=== PATIENT | male | born 1965 | race Caucasian/White ===

== ENCOUNTER → 2018-11-03 | Emergency (ER) | payer SELFPAY ==
[~2018-11-03] MED LIST: Lisinopril 10 MG TAB ONE; Lisinopril 20 MG TAB PO SCH; Lorazepam 1 MG TAB ONE; Nicotine 14 MG PATCH TOP SCH; chlordiazePOXIDE HCl 25 MG CAP ONE; chlordiazePOXIDE HCl 25 MG CAP PO SCH; hydrOXYzine 25 MG TAB ONE
[2018-11-03 19:41] LABS: Bilirubin Negative (Negative); Blood, Urine Negative (Negative); Clarity CLEAR (Clear); Glucose, Urine (Dipstick) Negative (Negative); Leukocyte Negative (Negative); Nitrite Negative (Negative); Protein, Urine (Dipstick) Negative (Neg-Trace); Specific Gravity, Urine 1.005 (1.002-1.036)
[2018-11-03 19:42] LABS: #Basophils 0.1 thou/uL (0.0-0.2); #Eosinphils 0.2 thou/uL (0.0-0.7); #Lymphocytes 1.5 thou/uL (1.20-3.40); #Monocytes 0.3 thou/uL (0.11-0.59); #Neutrophils 1.7 thou/uL (1.40-6.50); %Eosinophils 5.1 % (0.0-10.0); %Lymphocytes 40.2 % (21.0-51.0); %Monocytes 7.5 % (0.0-10.0); %Neutrophils 45.1 % (42.0-75.0); Hemoglobin 16.1 g/dL (14.0-18.0); Mean Corpuscular Hemoglobin 33.6 pg (27.0-31.0); Mean Platelet Volume 7.9 fL (7.4-10.4); Platelet Count 120 thou/uL (130-400); RBC Distribution Width 13.6 % (11.5-14.5); Red Blood Cell (RBC) Count 4.78 mill/uL (4.70-6.10); White Blood Cell (WBC) Count 3.7 thou/uL (4.8-10.8)
[2018-11-03 20:02] LABS: ALT (SGPT) 102 U/L (8-55); AST (SGOT) 201 U/L (5-34); Acetaminophen Less than 6.0 mcg/mL (10.0-30.0); Albumin 4.1 g/dL (3.5-5.0); Alcohol 311 mg/dL (Less than 10); Alkaline Phosphatase 143 U/L (40-150); Anion Gap 17 mmol/L (10-20); BUN (Urea Nitrogen) 4 mg/dL (8.4-25.7); Bilirubin, Total 1.1 mg/dL (0.2-1.2); CK (CPK) 164 U/L (30-200); Calc. Creatinine Clearance 0 mL/min (70-130); Calcium 9.1 mg/dL (7.8-10.44); Carbon Dioxide 26 mmol/L (22-29); Chloride 99 mmol/L (98-107); Estimated GFR-MDRD 84; Globulin 2.9 g/dL (2.4-3.5); Glucose 108 mg/dL (70-105); Salicylate Less than 8.0 mg/dL (15.0-30.0); Sodium 139 mmol/L (136-145)
[2018-11-03 20:06] LABS: Potassium 2.9 mmol/L (3.5-5.1)
[2018-11-03 20:07] LABS: Amphetamine Detected (NotDetected); Barbiturates Screen Not Detected (NotDetected); Benzodiazepine Screen Detected (NotDetected); Cocaine Metabolite Screen Not Detected (NotDetected); Medtox Reader # READER 4; Methadone Not Detected (NotDetected); Methamphetamine Not Detected (NotDetected); Opiate Screen Not Detected (NotDetected); Oxycodone Screen Not Detected (NotDetected); Phencyclidine (PCP) Not Detected (NotDetected); THC/Cannabinoid Screen Not Detected (NotDetected); Tricyclic Screen Not Detected (NotDetected)
[2018-11-03 20:08] LABS: Medtox Control Line Valid? VALID (VALID)
[2018-11-04 20:09] LABS: ALT (SGPT) 90 U/L (8-55); AST (SGOT) 139 U/L (5-34); Alkaline Phosphatase 152 U/L (40-150); Anion Gap 16 mmol/L (10-20); BUN (Urea Nitrogen) 4 mg/dL (8.4-25.7); Bilirubin, Total 1.8 mg/dL (0.2-1.2); Calc. Creatinine Clearance 0 mL/min (70-130); Calcium 9.5 mg/dL (7.8-10.44); Carbon Dioxide 26 mmol/L (22-29); Chloride 99 mmol/L (98-107); Estimated GFR-MDRD Greater than 90; Globulin 2.9 g/dL (2.4-3.5); Glucose 136 mg/dL (70-105); Potassium 3.2 mmol/L (3.5-5.1); Protein, Total 6.9 g/dL (6.0-8.3); Sodium 138 mmol/L (136-145)
--- NOTE | 2018-11-08 17:00 | EKG ---
Test Reason : Blood Pressure : / mmHG Vent. Rate : 095 BPM Atrial Rate : 095 BPM P-R Int : 146 ms QRS Dur : 096 ms QT Int : 372 ms P-R-T Axes : 073 074 037 degrees QTc Int : 467 ms Normal sinus rhythm Possible Left atrial enlargement Borderline ECG Confirmed by TOMMIE MEDINA DO ([id number]), communications editor DANIEL HAINES ([id number]) on 11/08/2018 4:59:52 PM Referred By: Confirmed By:TOMMIE MEDINA DO
== END ==
LOC: ERS 18:44
DX: T42.4X2A Poisoning by benzodiazepines, intentional self-harm, initial encounter (principal); F10.10 Alcohol abuse, uncomplicated; I10 Essential (primary) hypertension; K21.9 Gastro-esophageal reflux disease without esophagitis; F41.0 Panic disorder [episodic paroxysmal anxiety]; F17.210 Nicotine dependence, cigarettes, uncomplicated; Z79.899 Other long term (current) drug therapy
CPT/HCPCS: 36415; 80053; 80306; 80307; 81003; 82550; 84443; 85025; 93005

== ENCOUNTER 2022-10-11 22:31 | Inpatient (IN) | payer SELFPAY ==
[2022-10-11] MEDS ORDERED: Ibuprofen 200 MG TAB ONE (23:14)
[2022-10-11 23:42] LABS: #Monocytes 1.1 thou/uL (0.11-0.59); %Basophils 0.1 % (0.0-1.0); %Lymphocytes 3.5 % (21.0-51.0); %Monocytes 6.7 % (0.0-10.0); %Neutrophils 89.2 % (42.0-75.0); Hemoglobin 11.1 g/dL (14.0-18.0); Mean Corpuscular HGB CONC 31.8 g/dL (32.0-36.0); Mean Corpuscular Hemoglobin 23.9 pg (27.0-31.0); Mean Corpuscular Volume 75.2 fl (78.0-98.0); Mean Platelet Volume 9.8 fL (7.4-10.4); Platelet Count 363 10x3/uL (130-400); RBC Distribution Width 17.9 % (11.5-14.5); Red Blood Cell (RBC) Count 4.64 mill/uL (4.70-6.10); White Blood Cell (WBC) Count 16.8 10x3/uL (4.8-10.8)
[2022-10-12 00:06] LABS: Acetaminophen Less than 10.0 mcg/mL (10.0-30.0); Alcohol Less than 10 mg/dL (Less than 10); Salicylate Less than 8.0 mg/dL (15.0-30.0)
[2022-10-12 00:09] LABS: ALT (SGPT) 26 U/L (8-55); AST (SGOT) 36 U/L (5-34); Albumin 4.2 g/dL (3.5-5.0); Alkaline Phosphatase 78 U/L (40-110); Anion Gap 17 mmol/L (10-20); BUN (Urea Nitrogen) 21 mg/dL (8.4-25.7); Bilirubin, Total 1.6 mg/dL (0.2-1.2); Calc. Creatinine Clearance 0 mL/min (70-130); Calcium 9.1 mg/dL (7.8-10.44); Carbon Dioxide 23 mmol/L (22-29); Chloride 88 mmol/L (98-107); Estimated GFR 68; Globulin 3.1 g/dL (2.4-3.5); Glucose 174 mg/dL (70-105); Lipase 9 U/L (8-78); Potassium 3.3 mmol/L (3.5-5.1); Protein, Total 7.3 g/dL (6.0-8.3); Sodium 125 mmol/L (136-145)
[2022-10-12 00:29] LABS: Bacteria/HPF None Seen HPF (None Seen); Bilirubin Negative (Negative); Blood, Urine 3+ (Negative); Clarity Clear (Clear); Glucose, Urine (Dipstick) 30 mg/dL (Negative); Ketone, Urine Trace mg/dL (Negative); Leukocyte Negative Leu/uL (Negative); Nitrite Negative (Negative); Protein, Urine (Dipstick) 200 mg/dL (Neg-Trace); RBC/HPF 0-3 HPF (0-3); Specific Gravity, Urine 1.025 (1.002-1.036); Squamous Epithelial 0-3 HPF (0-3); Urobilinogen 3 mg/dL (Less than 2); WBC/HPF 0-3 HPF (0-3)
[2022-10-12 00:31] LABS: Amphetamine Not Detected (NotDetected); Barbiturates Screen Not Detected (NotDetected); Benzodiazepine Screen Not Detected (NotDetected); Cocaine Metabolite Screen Not Detected (NotDetected); Methadone Not Detected (NotDetected); Methamphetamine Not Detected (NotDetected); Opiate Screen Not Detected (NotDetected); Oxycodone Screen Not Detected (NotDetected); Phencyclidine (PCP) Not Detected (NotDetected); THC/Cannabinoid Screen Not Detected (NotDetected); Tricyclic Screen Not Detected (NotDetected)
[2022-10-12 00:47] LABS: CKMB 4.5 ng/mL (0-6.6)
[2022-10-12] MEDS ORDERED: Ondansetron ODT 4 MG TAB PO PRN (03:44)
[2022-10-12] MEDS ORDERED: Ondansetron PF 4 MG/2 ML Vial IVP PRN (03:44)
[2022-10-12] MEDS ORDERED: Acetaminophen 650 MG Suppository PR PRN (03:44)
[2022-10-12] MEDS ORDERED: Acetaminophen 325 MG TAB PO PRN (03:44)
[2022-10-12] MEDS ORDERED: Sodium Chloride 0.9% 1,000 ML IV SCH (03:45)
[2022-10-12] MEDS ORDERED: Cefepime 2 GM in Sodium Chloride 0.9% 100 ML IVPB SCH (04:15)
[2022-10-12] MEDS ORDERED: Vancomycin 1.5 GRAM/300 ML BAG 1.5 GM in Premix Bag 1 BAG IVPB SCH (04:15)
[2022-10-12 04:22] LABS: #Neutrophils 12.5 thou/uL (1.40-6.50); %Lymphocytes 6.6 % (21.0-51.0); %Monocytes 7.1 % (0.0-10.0); %Neutrophils 85.8 % (42.0-75.0); Hemoglobin 10.3 g/dL (14.0-18.0); Mean Corpuscular HGB CONC 31.5 g/dL (32.0-36.0); Mean Corpuscular Hemoglobin 24.1 pg (27.0-31.0); Mean Corpuscular Volume 76.6 fl (78.0-98.0); Platelet Count 339 10x3/uL (130-400); RBC Distribution Width 18.1 % (11.5-14.5); Red Blood Cell (RBC) Count 4.27 mill/uL (4.70-6.10); White Blood Cell (WBC) Count 14.6 10x3/uL (4.8-10.8)
[2022-10-12 04:44] LABS: Anion Gap 11 mmol/L (10-20); BUN (Urea Nitrogen) 22 mg/dL (8.4-25.7); Calc. Creatinine Clearance 0 mL/min (70-130); Carbon Dioxide 28 mmol/L (22-29); Chloride 90 mmol/L (98-107); Potassium 2.8 mmol/L (3.5-5.1); Sodium 126 mmol/L (136-145)
[2022-10-12 04:45] LABS: Calcium 8.7 mg/dL (7.8-10.44); Estimated GFR 87; Glucose 131 mg/dL (70-105)
[2022-10-12] MEDS ORDERED: Piperacillin/Tazobactam 3.375 GM VIAL ONE ×2 (04:56→10:33)
[2022-10-12] MEDS ORDERED: VANCOMYCIN 2 GRAM/500 ML BAG 2 GM in Premix Bag 1 BAG IVPB SCH (05:00)
[2022-10-12 05:16] VITALS: BMI 32.1
[2022-10-12 05:45] LABS: Iron 50 ug/dL (65-175); Iron Binding Capacity, Total 360 mcg/dL (261-462); Magnesium 2.1 mg/dL (1.6-2.6)
[2022-10-12 05:55] LABS: Troponin I 0.015 ng/mL (< 0.028)
[2022-10-12] MEDS ORDERED: Potassium Chloride 20 MEQ TAB ONE ×2 (05:59→08:14)
[2022-10-12] MEDS ORDERED: Piperacillin/Tazobactam 3.375 GM in Sodium Chloride 0.9% 100 ML IVPB SCH (06:00)
[2022-10-12] MEDS: Potassium Chloride 20 MEQ TAB PO SCH ×2 (06:08→08:18)
[2022-10-12] MEDS ORDERED: Lorazepam 1 MG TAB PO PRN (07:58)
[2022-10-12] MEDS ORDERED: Lorazepam 2 MG/ML VIAL IM PRN (07:58)
[2022-10-12] MEDS ORDERED: Electrolyte Replacement Protocol 1 EACH FS SCH (08:00)
[2022-10-12] MEDS ORDERED: Lorazepam 1 MG TAB ONE ×2 (08:13→11:30)
[2022-10-12] MEDS ORDERED: LORazepam 2 MG/ML SYR.(CARPUJECT) ONE (08:13)
[2022-10-12] MEDS ORDERED: Folic Acid 1 MG TAB ONE (08:14)
[2022-10-12] MEDS: Folic Acid 1 MG TAB PO SCH (08:23)
[2022-10-12] MEDS: Lorazepam 1 MG TAB PO SCH ×3 (08:23→22:11)
[2022-10-12 08:37] LABS: Magnesium 1.9 mg/dL (1.6-2.6); Phosphorus 2.9 mg/dL (2.3-4.7)
[2022-10-12] MEDS ORDERED: Magnesium 2 GM/50 ML BAG (IN WATER) ONE (09:28)
[2022-10-12] MEDS: Multivit, Therapeutic 1 TAB PO SCH (09:38)
[2022-10-12] MEDS: Thiamine HCl 200 MG/2 ML VIAL SLOW IVP SCH (09:38)
[2022-10-12] MEDS ORDERED: Magnesium 2 GM/50 ML(in water) 2 GM in Premix Bag 1 BAG IVPB SCH (10:00)
[2022-10-12] MEDS: Piperacillin/Tazobactam 3.375 GM in Sodium Chloride 0.9% 100 ML IVPB SCH ×2 (10:40→17:56)
[2022-10-12 11:08] LABS: Sodium, Urine Less than 20 mmol/L (Not Available)
[2022-10-12] MEDS: Sodium Chloride 1 GM TAB PO SCH ×2 (16:10→22:11)
[2022-10-12] MEDS ORDERED: hydrALAZINE 20 MG/ML VIAL SLOW IVP PRN (17:25)
[2022-10-12 17:42] LABS: Anion Gap 14 mmol/L (10-20); BUN (Urea Nitrogen) 16 mg/dL (8.4-25.7); Calc. Creatinine Clearance 135 mL/min (70-130); Calcium 8.8 mg/dL (7.8-10.44); Carbon Dioxide 25 mmol/L (22-29); Chloride 92 mmol/L (98-107); Estimated GFR 99; Glucose 113 mg/dL (70-105); Potassium 3.6 mmol/L (3.5-5.1); Sodium 127 mmol/L (136-145)
[2022-10-12] MEDS ORDERED: PARoxetine 20 MG TAB PO SCH (17:45)
[2022-10-12] MEDS ORDERED: Lisinopril 20 MG TAB PO SCH (17:45)
[2022-10-12] MEDS ORDERED: Amlodipine 10 MG TAB PO SCH (17:45)
[2022-10-12] MEDS: VANCOMYCIN 1.75 GM/500 ML BAG 1.75 GM in Premix Bag 1 BAG IVPB SCH (18:37)
[2022-10-12] MEDS: busPIRone HCl 10 MG TAB PO SCH (22:11)
[2022-10-13] MEDS: Lorazepam 1 MG TAB PO SCH ×5 (01:53→19:58)
[2022-10-13] MEDS: Piperacillin/Tazobactam 3.375 GM in Sodium Chloride 0.9% 100 ML IVPB SCH ×4 (01:54→18:16)
[2022-10-13] MEDS: VANCOMYCIN 1.75 GM/500 ML BAG 1.75 GM in Premix Bag 1 BAG IVPB SCH (05:23)
[2022-10-13 07:24] LABS: Anion Gap 13 mmol/L (10-20); BUN (Urea Nitrogen) 13 mg/dL (8.4-25.7); Calc. Creatinine Clearance 152 mL/min (70-130); Calcium 8.6 mg/dL (7.8-10.44); Carbon Dioxide 25 mmol/L (22-29); Chloride 91 mmol/L (98-107); Estimated GFR 103; Glucose 102 mg/dL (70-105); Potassium 3.2 mmol/L (3.5-5.1); Sodium 126 mmol/L (136-145)
[2022-10-13] MEDS ORDERED: Lorazepam 1 MG TAB PO PRN (07:58)
[2022-10-13] MEDS ORDERED: Potassium Chloride 20 MEQ TAB PO SCH ×2 (08:00→21:15)
[2022-10-13] MEDS: busPIRone HCl 10 MG TAB PO SCH ×2 (08:53→19:47)
[2022-10-13] MEDS: Folic Acid 1 MG TAB PO SCH (08:53)
[2022-10-13] MEDS: PARoxetine 20 MG TAB PO SCH (08:53)
[2022-10-13] MEDS: Lisinopril 20 MG TAB PO SCH (08:54)
[2022-10-13] MEDS: Multivit, Therapeutic 1 TAB PO SCH (08:54)
[2022-10-13] MEDS: Amlodipine 10 MG TAB PO SCH (08:54)
[2022-10-13] MEDS: Thiamine HCl 200 MG/2 ML VIAL SLOW IVP SCH (08:59)
[2022-10-13] MEDS: Sodium Chloride 1 GM TAB PO SCH ×3 (08:59→19:47)
[2022-10-13] MEDS ORDERED: Dextrose 5% in Water 1,000 ML IV SCH (12:00)
[2022-10-13] MEDS ORDERED: Sodium Chloride 256 MEQ in Dextrose 5% in Water 936 ML IV SCH (14:30)
[2022-10-13 17:41] LABS: Anion Gap 13 mmol/L (10-20); BUN (Urea Nitrogen) 14 mg/dL (8.4-25.7); Calc. Creatinine Clearance 161 mL/min (70-130); Calcium 8.5 mg/dL (7.8-10.44); Carbon Dioxide 25 mmol/L (22-29); Chloride 93 mmol/L (98-107); Estimated GFR 105; Glucose 112 mg/dL (70-105); Potassium 3.3 mmol/L (3.5-5.1); Sodium 128 mmol/L (136-145)
[2022-10-13 17:41] LABS: Vancomycin, Trough 11.1 ug/mL
[2022-10-13] MEDS: VANCOMYCIN 1.25 GM/250 ML BAG 1.25 GM in Premix Bag 1 BAG IVPB SCH (19:47)
[2022-10-13 22:20] LABS: Anion Gap 12 mmol/L (10-20); BUN (Urea Nitrogen) 14 mg/dL (8.4-25.7); Calc. Creatinine Clearance 147 mL/min (70-130); Calcium 8.4 mg/dL (7.8-10.44); Carbon Dioxide 25 mmol/L (22-29); Chloride 95 mmol/L (98-107); Estimated GFR 102; Glucose 105 mg/dL (70-105); Potassium 3.5 mmol/L (3.5-5.1); Sodium 128 mmol/L (136-145)
[2022-10-14] MEDS: Piperacillin/Tazobactam 3.375 GM in Sodium Chloride 0.9% 100 ML IVPB SCH ×3 (01:25→17:29)
[2022-10-14] MEDS: VANCOMYCIN 1.25 GM/250 ML BAG 1.25 GM in Premix Bag 1 BAG IVPB SCH ×2 (01:25→11:14)
[2022-10-14] MEDS: Lorazepam 1 MG TAB PO SCH (01:33)
[2022-10-14 06:56] LABS: Anion Gap 10 mmol/L (10-20); BUN (Urea Nitrogen) 12 mg/dL (8.4-25.7); Calc. Creatinine Clearance 115 mL/min (70-130); Calcium 8.5 mg/dL (7.8-10.44); Carbon Dioxide 26 mmol/L (22-29); Chloride 95 mmol/L (98-107); Estimated GFR 102; Glucose 103 mg/dL (70-105); Potassium 3.6 mmol/L (3.5-5.1); Sodium 127 mmol/L (136-145)
[2022-10-14] MEDS ORDERED: Lorazepam 1 MG TAB PO PRN (07:58)
[2022-10-14] MEDS ORDERED: Sodium Chloride 256 MEQ in Dextrose 5% in Water 936 ML IV SCH ×2 (08:15→22:55)
[2022-10-14] MEDS: Sodium Chloride 1 GM TAB PO SCH ×3 (08:28→19:52)
[2022-10-14] MEDS: Folic Acid 1 MG TAB PO SCH (08:29)
[2022-10-14] MEDS: Amlodipine 10 MG TAB PO SCH (08:29)
[2022-10-14] MEDS: busPIRone HCl 10 MG TAB PO SCH ×2 (08:29→19:52)
[2022-10-14] MEDS: Lisinopril 20 MG TAB PO SCH (08:29)
[2022-10-14] MEDS: Multivit, Therapeutic 1 TAB PO SCH (08:29)
[2022-10-14] MEDS: PARoxetine 20 MG TAB PO SCH (08:29)
[2022-10-14] MEDS: Thiamine HCl 200 MG/2 ML VIAL SLOW IVP SCH (08:30)
[2022-10-14] MEDS: Lorazepam 0.5 MG TAB PO SCH ×3 (08:41→19:52)
[2022-10-14 11:11] LABS: HBSAg Index 0.22 S/CO (0-0.99); Hep B Surf Ag Non-Reactive S/CO (NonReactive)
[2022-10-14 11:12] LABS: Hep A IgM AB Non-Reactive S/CO (NonReactive); Hep A IgM S/CO 0.17 S/CO (0-0.79)
[2022-10-14 11:13] LABS: HBCM Index 0.09 S/CO (0-0.79); Hepatitis B Core IgM Abs Non-Reactive S/CO (NonReactive)
[2022-10-14 11:35] LABS: Hep C IgG Ab Reflex HepC Qnt S/CO (NonReactive); Hep C Index 2.02 S/CO (0-0.79)
[2022-10-14 13:59] LABS: Anion Gap 13 mmol/L (10-20); BUN (Urea Nitrogen) 12 mg/dL (8.4-25.7); Calc. Creatinine Clearance 116 mL/min (70-130); Calcium 8.7 mg/dL (7.8-10.44); Carbon Dioxide 26 mmol/L (22-29); Chloride 94 mmol/L (98-107); Estimated GFR 102; Glucose 155 mg/dL (70-105); Potassium 3.6 mmol/L (3.5-5.1); Sodium 129 mmol/L (136-145)
[2022-10-14 18:57] LABS: Anion Gap 11 mmol/L (10-20); BUN (Urea Nitrogen) 16 mg/dL (8.4-25.7); Calc. Creatinine Clearance 108 mL/min (70-130); Calcium 8.2 mg/dL (7.8-10.44); Carbon Dioxide 24 mmol/L (22-29); Chloride 97 mmol/L (98-107); Estimated GFR 100; Glucose 134 mg/dL (70-105); Potassium 3.7 mmol/L (3.5-5.1); Sodium 128 mmol/L (136-145)
[2022-10-15] MEDS: Piperacillin/Tazobactam 3.375 GM in Sodium Chloride 0.9% 100 ML IVPB SCH ×2 (01:25→09:00)
[2022-10-15] MEDS: Lorazepam 0.5 MG TAB PO SCH (01:33)
[2022-10-15 06:58] LABS: #Eosinphils 0.3 thou/uL (0.0-0.7); #Monocytes 0.5 thou/uL (0.11-0.59); #Neutrophils 6.8 thou/uL (1.40-6.50); %Basophils 0.1 % (0.0-1.0); %Eosinophils 2.8 % (0.0-10.0); %Lymphocytes 14.4 % (21.0-51.0); %Monocytes 5.5 % (0.0-10.0); %Neutrophils 76.9 % (42.0-75.0); Hemoglobin 8.5 g/dL (14.0-18.0); Mean Corpuscular HGB CONC 30.6 g/dL (32.0-36.0); Mean Corpuscular Hemoglobin 24.5 pg (27.0-31.0); Mean Corpuscular Volume 80.1 fl (78.0-98.0); Mean Platelet Volume 10.5 fL (7.4-10.4); Platelet Count 469 10x3/uL (130-400); RBC Distribution Width 18.4 % (11.5-14.5); Red Blood Cell (RBC) Count 3.47 mill/uL (4.70-6.10); White Blood Cell (WBC) Count 8.8 10x3/uL (4.8-10.8)
[2022-10-15 07:24] LABS: Anion Gap 10 mmol/L (10-20); BUN (Urea Nitrogen) 43 mg/dL (8.4-25.7); Calc. Creatinine Clearance 105 mL/min (70-130); Calcium 8.2 mg/dL (7.8-10.44); Carbon Dioxide 26 mmol/L (22-29); Chloride 101 mmol/L (98-107); Estimated GFR 99; Glucose 139 mg/dL (70-105); Potassium 4.2 mmol/L (3.5-5.1); Sodium 133 mmol/L (136-145)
[2022-10-15] MEDS ORDERED: Lorazepam 0.5 MG TAB PO PRN (07:58)
[2022-10-15] MEDS: busPIRone HCl 10 MG TAB PO SCH ×2 (08:58→20:19)
[2022-10-15] MEDS: PARoxetine 20 MG TAB PO SCH (08:59)
[2022-10-15] MEDS: Folic Acid 1 MG TAB PO SCH (08:59)
[2022-10-15] MEDS: Thiamine 100 MG TAB PO SCH (08:59)
[2022-10-15] MEDS: Amlodipine 10 MG TAB PO SCH (08:59)
[2022-10-15] MEDS: Multivit, Therapeutic 1 TAB PO SCH (08:59)
[2022-10-15] MEDS: Lisinopril 20 MG TAB PO SCH (09:00)
[2022-10-15] MEDS: Sodium Chloride 1 GM TAB PO SCH ×3 (09:02→20:19)
[2022-10-15] MEDS: Sodium Chloride 256 MEQ in Dextrose 5% in Water 936 ML IV SCH (10:19)
[2022-10-15 14:56] LABS: Anion Gap 10 mmol/L (10-20); BUN (Urea Nitrogen) 50 mg/dL (8.4-25.7); Calc. Creatinine Clearance 109 mL/min (70-130); Calcium 8.1 mg/dL (7.8-10.44); Carbon Dioxide 23 mmol/L (22-29); Chloride 105 mmol/L (98-107); Estimated GFR 100; Glucose 145 mg/dL (70-105); Potassium 4.2 mmol/L (3.5-5.1); Sodium 134 mmol/L (136-145)
[2022-10-15 17:06] LABS: Hemoglobin 7.1 g/dL (14.0-18.0)
[2022-10-15] MEDS ORDERED: Pantoprazole 40 MG VIAL IVP SCH ×2 (19:00→21:00)
[2022-10-15 20:35] LABS: Anion Gap 11 mmol/L (10-20); BUN (Urea Nitrogen) 46 mg/dL (8.4-25.7); Calc. Creatinine Clearance 100 mL/min (70-130); Calcium 8.2 mg/dL (7.8-10.44); Carbon Dioxide 21 mmol/L (22-29); Chloride 105 mmol/L (98-107); Estimated GFR 95; Glucose 168 mg/dL (70-105); Potassium 3.9 mmol/L (3.5-5.1); Sodium 133 mmol/L (136-145)
[2022-10-15] MEDS: Nicotine 14 MG PATCH TD SCH (22:48)
[2022-10-15 23:46] LABS: Hemoglobin 6.5 g/dL (14.0-18.0)
[2022-10-16] MEDS: Sodium Chloride 256 MEQ in Dextrose 5% in Water 936 ML IV SCH ×3 (04:29→23:36)
[2022-10-16 06:54] LABS: #Eosinphils 0.5 thou/uL (0.0-0.7); #Monocytes 0.4 thou/uL (0.11-0.59); %Basophils 0.2 % (0.0-1.0); %Eosinophils 5.1 % (0.0-10.0); %Lymphocytes 23.5 % (21.0-51.0); %Monocytes 4.2 % (0.0-10.0); %Neutrophils 66.3 % (42.0-75.0); Hemoglobin 8.1 g/dL (14.0-18.0); Mean Corpuscular HGB CONC 31.4 g/dL (32.0-36.0); Mean Corpuscular Hemoglobin 25.4 pg (27.0-31.0); Mean Corpuscular Volume 80.9 fl (78.0-98.0); Mean Platelet Volume 10.6 fL (7.4-10.4); Platelet Count 433 10x3/uL (130-400); RBC Distribution Width 17.8 % (11.5-14.5); Red Blood Cell (RBC) Count 3.19 mill/uL (4.70-6.10); White Blood Cell (WBC) Count 9.1 10x3/uL (4.8-10.8)
[2022-10-16 06:55] LABS: Hemoglobin 8.4 g/dL (14.0-18.0)
[2022-10-16 08:01] LABS: Anion Gap 11 mmol/L (10-20); BUN (Urea Nitrogen) 29 mg/dL (8.4-25.7); Calc. Creatinine Clearance 117 mL/min (70-130); Calcium 8.4 mg/dL (7.8-10.44); Carbon Dioxide 21 mmol/L (22-29); Chloride 104 mmol/L (98-107); Estimated GFR 102; Glucose 129 mg/dL (70-105); Potassium 3.7 mmol/L (3.5-5.1); Sodium 132 mmol/L (136-145)
[2022-10-16] MEDS ORDERED: Pantoprazole 40 MG VIAL IVP SCH (09:00)
[2022-10-16] MEDS ORDERED: GLYCOPYRROLATE/PF 0.2 MG/ML VIAL ONE (09:11)
[2022-10-16] MEDS ORDERED: PROPOFOL 200 MG/20 ML VIAL ONE (09:11)
[2022-10-16] MEDS ORDERED: Promethazine HCl 25 MG/ML VIAL ONE (09:27)
[2022-10-16] MEDS ORDERED: Fentanyl 250 MCG/5 ML VIAL ONE (09:27)
[2022-10-16] MEDS ORDERED: Ondansetron HCl/PF 4 MG/2 ML Vial IVP PRN (09:37)
[2022-10-16] MEDS ORDERED: Promethazine HCl 25 MG/ML VIAL IM PRN (09:37)
[2022-10-16] MEDS: busPIRone HCl 10 MG TAB PO SCH ×2 (10:21→20:27)
[2022-10-16] MEDS: Thiamine 100 MG TAB PO SCH (10:22)
[2022-10-16] MEDS: Lisinopril 5 MG TAB PO SCH ×2 (10:22→20:27)
[2022-10-16] MEDS: Sodium Chloride 1 GM TAB PO SCH ×3 (10:22→20:27)
[2022-10-16] MEDS: Folic Acid 1 MG TAB PO SCH (10:22)
[2022-10-16] MEDS: PARoxetine 20 MG TAB PO SCH (10:22)
[2022-10-16] MEDS: Multivit, Therapeutic 1 TAB PO SCH (10:22)
[2022-10-16] MEDS: Amlodipine 10 MG TAB PO SCH (10:23)
[2022-10-16 13:53] LABS: Anion Gap 7 mmol/L (10-20); BUN (Urea Nitrogen) 22 mg/dL (8.4-25.7); Calc. Creatinine Clearance 117 mL/min (70-130); Calcium 8.2 mg/dL (7.8-10.44); Carbon Dioxide 24 mmol/L (22-29); Chloride 103 mmol/L (98-107); Estimated GFR 102; Glucose 183 mg/dL (70-105); Potassium 3.8 mmol/L (3.5-5.1); Sodium 130 mmol/L (136-145)
[2022-10-16] MEDS: Nicotine 14 MG PATCH TD SCH (20:28)
[2022-10-16 22:11] LABS: Anion Gap 9 mmol/L (10-20); BUN (Urea Nitrogen) 19 mg/dL (8.4-25.7); Calc. Creatinine Clearance 113 mL/min (70-130); Calcium 8.2 mg/dL (7.8-10.44); Carbon Dioxide 21 mmol/L (22-29); Chloride 105 mmol/L (98-107); Estimated GFR 101; Glucose 158 mg/dL (70-105); Sodium 131 mmol/L (136-145)
[2022-10-17 07:54] LABS: Anion Gap 8 mmol/L (10-20); BUN (Urea Nitrogen) 16 mg/dL (8.4-25.7); Calc. Creatinine Clearance 122 mL/min (70-130); Calcium 8.4 mg/dL (7.8-10.44); Carbon Dioxide 23 mmol/L (22-29); Chloride 105 mmol/L (98-107); Estimated GFR 104; Glucose 123 mg/dL (70-105); Potassium 4.2 mmol/L (3.5-5.1); Sodium 132 mmol/L (136-145)
[2022-10-17] MEDS: busPIRone HCl 10 MG TAB PO SCH ×2 (08:34→19:54)
[2022-10-17] MEDS: Sodium Chloride 1 GM TAB PO SCH ×3 (08:34→19:54)
[2022-10-17] MEDS: Folic Acid 1 MG TAB PO SCH (08:35)
[2022-10-17] MEDS: Multivit, Therapeutic 1 TAB PO SCH (08:35)
[2022-10-17] MEDS: Lisinopril 5 MG TAB PO SCH ×2 (08:35→19:54)
[2022-10-17] MEDS: Thiamine 100 MG TAB PO SCH (08:35)
[2022-10-17] MEDS: Amlodipine 10 MG TAB PO SCH (08:35)
[2022-10-17] MEDS: PARoxetine 20 MG TAB PO SCH (08:37)
[2022-10-17 09:30] LABS: #Eosinphils 0.3 thou/uL (0.0-0.7); #Monocytes 0.3 thou/uL (0.11-0.59); #Neutrophils 5.8 thou/uL (1.40-6.50); %Basophils 0.3 % (0.0-1.0); %Eosinophils 4.3 % (0.0-10.0); %Lymphocytes 15.8 % (21.0-51.0); %Neutrophils 74.8 % (42.0-75.0); Hemoglobin 6.8 g/dL (14.0-18.0); Mean Corpuscular HGB CONC 32.1 g/dL (32.0-36.0); Mean Corpuscular Hemoglobin 25.4 pg (27.0-31.0); Mean Corpuscular Volume 79.1 fl (78.0-98.0); Mean Platelet Volume 10.1 fL (7.4-10.4); Platelet Count 361 10x3/uL (130-400); RBC Distribution Width 18.3 % (11.5-14.5); Red Blood Cell (RBC) Count 2.68 mill/uL (4.70-6.10); White Blood Cell (WBC) Count 7.7 10x3/uL (4.8-10.8)
[2022-10-17 14:18] LABS: Hemoglobin 7.3 g/dL (14.0-18.0)
[2022-10-17] MEDS: Nicotine 14 MG PATCH TD SCH (20:07)
[2022-10-17 20:36] LABS: Hemoglobin 7.7 g/dL (14.0-18.0)
[2022-10-17 22:12] LABS: Hep C PCR-Quant HCV Not Detected IU/mL (.)
[2022-10-17 22:12] LABS: HBV as IU/mL HBV DNA not detected IU/mL (.)
[2022-10-18 02:26] LABS: Hemoglobin 7.8 g/dL (14.0-18.0)
[2022-10-18 03:36] LABS: Anion Gap 12 mmol/L (10-20); BUN (Urea Nitrogen) 11 mg/dL (8.4-25.7); Calc. Creatinine Clearance 110 mL/min (70-130); Calcium 8.5 mg/dL (7.8-10.44); Carbon Dioxide 22 mmol/L (22-29); Cardiac Risk 5.2 (Less than 4.5); Chloride 99 mmol/L (98-107); Cholesterol 103 mg/dl (< 200 Desired); Estimated GFR 100; Glucose 146 mg/dL (70-105); HDL Cholesterol 20 mg/dL (>60 Neg Risk); LDL Cholesterol, Calculated 57 mg/dL; Potassium 3.8 mmol/L (3.5-5.1); Sodium 129 mmol/L (136-145); Triglycerides 131 mg/dL (Less than 150)
[2022-10-18] MEDS: Amlodipine 10 MG TAB PO SCH (08:33)
[2022-10-18] MEDS: Thiamine 100 MG TAB PO SCH (08:33)
[2022-10-18] MEDS: Multivit, Therapeutic 1 TAB PO SCH (08:34)
[2022-10-18] MEDS: PARoxetine 20 MG TAB PO SCH (08:34)
[2022-10-18] MEDS: busPIRone HCl 10 MG TAB PO SCH (08:34)
[2022-10-18] MEDS: Folic Acid 1 MG TAB PO SCH (08:34)
[2022-10-18] MEDS: Lisinopril 5 MG TAB PO SCH (08:34)
[2022-10-18] MEDS: Sodium Chloride 1 GM TAB PO SCH (08:39)
[2022-10-18 11:28] VITALS: BP 132/76; TEMP 97.8
== END 2022-10-18 11:43 | disposition home or self-care (01) | DRG 70 ==
LOC: ERS 22:31 → ERHOLD 10-12 03:32 → OBSVTOIN 10-12 10:26 → T4-A 10-12 14:06
PROVIDERS: ADMIT Student in an Organized Health Care Education/Training Program; ATTEND Internal Medicine
PROC: 30233N1 Transfusion of Nonautologous Red Blood Cells into Peripheral Vein, Percutaneous Approach (ICD-10-PCS; 2022-10-15)
PROC: 0DB58ZX Excision of Esophagus, Via Natural or Artificial Opening Endoscopic, Diagnostic (ICD-10-PCS; principal; 2022-10-16)
PROC: 0DB68ZX Excision of Stomach, Via Natural or Artificial Opening Endoscopic, Diagnostic (ICD-10-PCS; 2022-10-16)
DX: G93.41 Metabolic encephalopathy (principal); K25.4 Chronic or unspecified gastric ulcer with hemorrhage; B19.10 Unspecified viral hepatitis B without hepatic coma; E22.2 Syndrome of inappropriate secretion of antidiuretic hormone; K92.1 Melena; D62 Acute posthemorrhagic anemia; E86.0 Dehydration; I10 Essential (primary) hypertension; K21.9 Gastro-esophageal reflux disease without esophagitis; E80.6 Other disorders of bilirubin metabolism; E87.6 Hypokalemia; D53.9 Nutritional anemia, unspecified; R77.8 Other specified abnormalities of plasma proteins; F32.A Depression, unspecified; K44.9 Diaphragmatic hernia without obstruction or gangrene; K21.00 Gastro-esophageal reflux disease with esophagitis, without bleeding; K22.70 Barrett's esophagus without dysplasia; G93.89 Other specified disorders of brain; Z79.899 Other long term (current) drug therapy
CPT/HCPCS: 36415; 36430; 51701; 70450; 70551; 71045; 74176; 76700; 80048; 80053; 80061; 80074; 80202; 80306; 80307; 81003; 81015; 82140; 82533; 82553; 82570; 82728; 83540; 83550; 83605; 83690; 83735; 83930; 83935; 84100; 84300; 84443; 84484; 84550; 85014; 85018; 85025; 86850; 86900; 86901; 87040; 87086; 87517; 87522; 88305; 88312; 88313; 93005; 93306; C9113; J1650; J2060; J2543; J2550; J2704; J3010; J3370; J3411; J3475; J3490; J7050; J7070; P9016